=== PATIENT | male | born 1945 | race Caucasian/White ===

== ENCOUNTER 2017-09-30 22:48 | Inpatient (IN) | payer MEDICARE, MEDICAID ==
[~2017-09-30] VITALS: Ht 177.8 cm; Wt 115.2 kg
[2017-09-30 23:56] LABS: BASOPHILS # (AUTO) 0.1 K/uL (0.0-8.0); BASOPHILS % (AUTO) 0.9 % (0.0-2.0); EOSINOPHILS # (AUTO) 0.3 K/uL (0.0-0.7); EOSINOPHILS % (AUTO) 3.7 % (0.0-7.0); HEMOGLOBIN 11.8 g/dL (12.5-16.3); LYMPHOCYTES % (AUTO) 32.7 % (20.5-51.5); MEAN CORPUSCULAR HEMOGLOBIN 27.8 uug (23.8-33.4); MEAN CORPUSCULAR HGB CONC 35 g/dL (32.5-36.3); MEAN CORPUSCULAR VOLUME 80.1 fL (73.0-96.2); MONOCYTES # (AUTO) 0.5 K/uL (2.0-10.0); MONOCYTES % (AUTO) 5.2 % (0.0-11.0); NEUTROPHILS # (AUTO) 5.2 K/uL (1.8-8.9); NEUTROPHILS % (AUTO) 57.5 % (38.5-71.5); PLATELET COUNT (AUTO) 217 K/uL (152-348); RED BLOOD CELL COUNT(AUTO) 4.25 MIL/uL (4.06-5.63)
[2017-10-01 00:09] LABS: ALANINE AMINOTRANSFERASE 19 U/L (16-63); BILIRUBIN,DIRECT 0.1 mg/dL (0.0-0.2); BILIRUBIN,TOTAL 0.7 mg/dL (0.2-1.0); CARBON DIOXIDE 23 mmol/L (21-32); CHLORIDE 104 mmol/L (98-107); CREATININE 1.7 mg/dL (0.6-1.3); GLUCOSE 172 mg/dL (74-106); POTASSIUM 4.1 mmol/L (3.5-5.1); TOTAL PROTEIN, SERUM 6.7 g/dL (6.4-8.2)
[2017-10-01] MEDS ORDERED: AMLODIPINE PO (00:15)
[2017-10-01] MEDS ORDERED: [UNRECOGNIZED DRUG - OTHER] PO (00:15)
[2017-10-01] MEDS ORDERED: DOCU-141 PO (00:15)
[2017-10-01] MEDS ORDERED: BENZ200C53 PO (00:15)
[2017-10-01] MEDS ORDERED: PANT40TA4 PO (00:15)
[2017-10-01] MEDS ORDERED: LORA-258 PO (00:15)
[2017-10-01 00:30] LABS: ALKALINE PHOSPHATASE 68 U/L (50-136); UREA NITROGEN, BLOOD 30 mg/dL (7-18)
--- NOTE | 2017-10-01 01:07 | NUR ---
Call placed to [employer], Nallely Mcgovern will be paged.
[2017-10-01] MEDS ORDERED: ASPIRIN 325 MG TABLET ONE (01:09)
[2017-10-01 01:12] LABS: ASPARTATE AMINOTRANSFERASE 16 U/L (15-37)
[2017-10-01] MEDS ORDERED: ASPIRIN 325 MG TABLET PO ONE (01:15)
--- NOTE | 2017-10-01 01:59 | NUR ---
Received report from ER nurse Kody.
--- NOTE | 2017-10-01 01:59 | NUR ---
REPORT GIVEN TO TELE NURSE LISSETT RN
[2017-10-01] MEDS ORDERED: Z GUARD REMEDY PASTE 57 GM TUBE TOP PRN (02:00)
[2017-10-01] MEDS ORDERED: ONDANSETRON 4 MG/2 ML VIAL IV PRN (02:00)
[2017-10-01] MEDS ORDERED: ACETAMINOPHEN 325 MG TABLET PO PRN (02:00)
[2017-10-01] MEDS ORDERED: HYDROCODONE/APAP 5-325MG TABLET PO PRN (02:00)
[2017-10-01] MEDS ORDERED: ZOLPIDEM 5 MG TABLET PO PRN (02:00)
[2017-10-01] MEDS ORDERED: MAGNESIUM HYDROXIDE 30 ML LIQUID UDC PO PRN (02:00)
--- NOTE | 2017-10-01 02:20 | NUR ---
Admitted pt with Dx of TIA. Pt AAOx4. Routine admission care done. Plan of care initiated. IV site on Left AC intact and patent. Sinus rhythm with PVC on tele. Safety measure initiated and call teixeira within reach.
[2017-10-01 02:50] VITALS: BP 146/63
[2017-10-01] MEDS: LORAZEPAM 0.5 MG TABLET PO PRN ×2 (03:02→20:52)
[2017-10-01] MEDS ORDERED: BLOOD SUGAR DIAGNOSTIC 1 EACH STRIP VI SCH ×2 (06:00→07:30)
[2017-10-01] MEDS: PANTOPRAZOLE SODIUM 40 MG TABLET.DR PO SCH (06:02)
--- NOTE | 2017-10-01 06:31 | NUR ---
Pt AOx4. Denies any pain or SOB. Not in acute distress. Mild pitting edema on both leg still present. Elevated BLE with pillow. IV site on left AC intact and patent. O2 at 93% on RA. Sinus rhythm with PVC on tele, 68/min. Safety measure maintained and call teixeira within reach.
[2017-10-01 06:41] LABS: BASOPHILS # (AUTO) 0.1 K/uL (0.0-8.0); EOSINOPHILS # (AUTO) 0.3 K/uL (0.0-0.7); EOSINOPHILS % (AUTO) 4.1 % (0.0-7.0); HEMATOCRIT 34.8 % (36.7-47.1); HEMOGLOBIN 11.7 g/dL (12.5-16.3); LYMPHOCYTES # (AUTO) 2.7 K/uL (20.0-40.0); LYMPHOCYTES % (AUTO) 36.6 % (20.5-51.5); MEAN CORPUSCULAR HEMOGLOBIN 26.8 uug (23.8-33.4); MEAN CORPUSCULAR HGB CONC 34 g/dL (32.5-36.3); MEAN CORPUSCULAR VOLUME 79.8 fL (73.0-96.2); MONOCYTES # (AUTO) 0.4 K/uL (2.0-10.0); MONOCYTES % (AUTO) 5.7 % (0.0-11.0); NEUTROPHILS # (AUTO) 3.9 K/uL (1.8-8.9); NEUTROPHILS % (AUTO) 52.6 % (38.5-71.5); PLATELET COUNT (AUTO) 194 K/uL (152-348); RED BLOOD CELL COUNT(AUTO) 4.36 MIL/uL (4.06-5.63); WHITE BLOOD COUNT (AUTO) 7.4 K/uL (3.6-10.2)
[2017-10-01 06:47] VITALS: BP 124/68
--- NOTE | 2017-10-01 07:00 | NUR ---
RECEIVED PATIENT ON BED AWAKE, A AND O X4, ON TELE SR PVC, NO ACUTE DISTRESS NOTED. C/O SOME NUMBNESS ON THE FINGERS OF THE LEFT HAND, BUT WITH STRONG RAILWAY PATROL OFFICER NOTED. IV ACCESS ON THE LEFT AC #18, INTACT AND PATENT. NO COMPLAINTS OF PAIN/DISCOMFORT AT THIS TIME. CALL LIGHT WITHIN REACH WILL CONTINUE TO MONITOR CLOSELY.
[2017-10-01 07:29] LABS: CARBON DIOXIDE 27 mmol/L (21-32); CHLORIDE 107 mmol/L (98-107); CREATININE 1.7 mg/dL (0.6-1.3); GLUCOSE 127 mg/dL (74-106); POTASSIUM 4.2 mmol/L (3.5-5.1); UREA NITROGEN, BLOOD 28 mg/dL (7-18)
[2017-10-01 07:48] LABS: ALANINE AMINOTRANSFERASE 16 U/L (16-63); ALKALINE PHOSPHATASE 66 U/L (50-136); ASPARTATE AMINOTRANSFERASE 12 U/L (15-37); BILIRUBIN,TOTAL 0.7 mg/dL (0.2-1.0); TOTAL PROTEIN, SERUM 6.8 g/dL (6.4-8.2)
[2017-10-01] MEDS: ASPIRIN 81 MG TAB.CHEW PO SCH (08:05)
[2017-10-01] MEDS: DOCUSATE SODIUM 100 MG CAPSULE PO SCH ×2 (08:05→18:14)
[2017-10-01] MEDS ORDERED: ENOXAPARIN SODIUM 60 MG/0.6 ML DISP.SYRIN SQ SCH ×2 (09:00→21:00)
[2017-10-01 09:01] LABS: *BILIRUBIN,URIN NEGATIVE (NEGATIVE); *BLOOD, URINE NEGATIVE (NEGATIVE); *CLARITY,URINE CLEAR (CLEAR); *COLOR,URINE YELLOW (YELLOW); *KETONES,URINE NEGATIVE (NEGATIVE); *PROTEIN,URINE NEGATIVE (NEGATIVE); *UROBILINOGEN,URINE 0.2 E.U./dl (NORMAL); LEUKOCYTE ESTERASE ,URINE NEGATIVE (NEGATIVE); NITRITE, URINE NEGATIVE (NEGATIVE); PH,URINE 5.5 (5.0-8.0); UGLUCOSE NEGATIVE (NEGATIVE)
[2017-10-01 09:10] LABS: BACTERIA,URINE NONE SEEN /HPF (NONE SEEN); RBC,URINE NONE SEEN /HPF (0-3); SQUAMOUS EPITHELIAL CELL,UR FEW /HPF (NONE SEEN); WBC,URINE 0-3 /HPF (0-3)
[2017-10-01] MEDS ORDERED: DEXTROSE 50% 50 ML DISP.SYRIN IV PRN (10:30)
[2017-10-01 11:34] VITALS: BP 135/57
[2017-10-01 12:18] LABS: CARBON DIOXIDE 24 mmol/L (21-32); CHLORIDE 106 mmol/L (98-107); CHOLESTEROL 191 mg/dL (<200); CREATININE 1.7 mg/dL (0.6-1.3); GLUCOSE 123 mg/dL (74-106); HDL CHOLESTEROL 27 mg/dL (40-60); MAGNESIUM 2.1 mg/dL (1.8-2.4); PHOSPHOROUS 4.1 mg/dL (2.5-4.9); POTASSIUM 4.3 mmol/L (3.5-5.1); TRIGLYCERIDES 171 MG/DL (30-150); UREA NITROGEN, BLOOD 28 mg/dL (7-18)
--- NOTE | 2017-10-01 12:30 | NUR ---
REFUSED INSULIN COVERAGE WITH BLOOD SUGAR OF 164, EXPALINED RISKS, PATIENT VERBALIZED UNDERSTANDING. WILL CONTINUE TO MONITOR CLOSELY.
[2017-10-01] MEDS: BLOOD SUGAR DIAGNOSTIC 1 EACH STRIP VI SCH ×3 (12:47→20:55)
[2017-10-01] MEDS: INSULIN REGULAR, HUMAN 300 UNIT/3 ML VIAL SQ PRN (12:47)
[2017-10-01] MEDS ORDERED: IV NS 1000 ML 1,000 ML IV PRN (15:00)
--- NOTE | 2017-10-01 15:27 | NUR ---
patient complained of gas, informed john banking manager, with orders for mylanta 30ml q6hr prn. orders noted and carried out. will cont. to monitor closely.
[2017-10-01] MEDS ORDERED: MAG HYDROX/AL HYDROX/SIMETH 30 ML LIQUID UDC PO PRN (15:30)
[2017-10-01 16:05] VITALS: BP 130/60
[2017-10-01] MEDS ORDERED: AMLODIPINE PO SCH (17:00)
[2017-10-01] MEDS ORDERED: OLMESARTAN PO SCH (17:00)
--- NOTE | 2017-10-01 19:10 | NUR ---
TEXTED DR. MACKAY FOR MRI C SPINE APPROVAL.
--- NOTE | 2017-10-01 19:12 | NUR ---
MRI APPROVED,IT WILL BE DONE TOMORROW ,I WILL CALLTOMORROW AM.
[2017-10-01 20:30] VITALS: BP 137/64
[2017-10-01] MEDS: ATORVASTATIN 20 MG TABLET PO SCH (20:45)
[2017-10-01] MEDS: LOSARTAN POTASSIUM 50 MG TABLET PO SCH (20:47)
[2017-10-01] MEDS: AMLODIPINE 5 MG TABLET PO SCH (20:48)
[2017-10-01] MEDS ORDERED: ENOXAPARIN SODIUM 40 MG/0.4 ML DISP.SYRIN SQ SCH (21:00)
[2017-10-02 00:26] VITALS: BP 138/55
[2017-10-02 04:00] VITALS: BP 127/67
[2017-10-02] MEDS: BLOOD SUGAR DIAGNOSTIC 1 EACH STRIP VI SCH ×4 (05:48→21:06)
[2017-10-02] MEDS: PANTOPRAZOLE SODIUM 40 MG TABLET.DR PO SCH (05:50)
--- NOTE | 2017-10-02 07:00 | NUR ---
RECEIVED PATIENT ON BED AWAKE, A AND O X4, ON TELE SR PVC, NO ACUTE DISTRESS NOTED. INDEPENDENT WITH ADLS, AMBULATORY. NO COMPLAINTS OF NUMBNESS OR TINGLING IN THE LEFT HAND, STRONG TRAVEL COUNSELOR NOTED. IV ACCESS ON THE LEFT HAND #22, INTACT AND PATENT. NO COMPLAINTS OF PAIN/DISCOMFORT AT THIS TIME. CALL LIGHT WITHIN REACH WILL CONTINUE TO MONITOR CLOSELY
[2017-10-02 07:01] LABS: CARBON DIOXIDE 28 mmol/L (21-32); CHLORIDE 103 mmol/L (98-107); CREATININE 1.5 mg/dL (0.6-1.3); GLUCOSE 129 mg/dL (74-106); UREA NITROGEN, BLOOD 21 mg/dL (7-18)
[2017-10-02 07:06] LABS: MAGNESIUM 2.1 mg/dL (1.8-2.4); PHOSPHOROUS 3.4 mg/dL (2.5-4.9)
[2017-10-02 07:08] LABS: BASOPHILS # (AUTO) 0.1 K/uL (0.0-8.0); BASOPHILS % (AUTO) 0.8 % (0.0-2.0); EOSINOPHILS # (AUTO) 0.3 K/uL (0.0-0.7); EOSINOPHILS % (AUTO) 3.6 % (0.0-7.0); HEMOGLOBIN 12.1 g/dL (12.5-16.3); LYMPHOCYTES # (AUTO) 2.3 K/uL (20.0-40.0); LYMPHOCYTES % (AUTO) 29.5 % (20.5-51.5); MEAN CORPUSCULAR HGB CONC 34 g/dL (32.5-36.3); MEAN CORPUSCULAR VOLUME 80.5 fL (73.0-96.2); MONOCYTES # (AUTO) 0.5 K/uL (2.0-10.0); MONOCYTES % (AUTO) 5.9 % (0.0-11.0); NEUTROPHILS # (AUTO) 4.8 K/uL (1.8-8.9); NEUTROPHILS % (AUTO) 60.2 % (38.5-71.5); PLATELET COUNT (AUTO) 195 K/uL (152-348); RED BLOOD CELL COUNT(AUTO) 4.47 MIL/uL (4.06-5.63)
--- NOTE | 2017-10-02 08:00 | NUR ---
Refuses IVF ns @ 60cc/hr, patient says that he doesn't wantt it because he gets up and walks frequently. will continue to monitor.
[2017-10-02] MEDS: ENOXAPARIN SODIUM 40 MG/0.4 ML DISP.SYRIN SQ SCH (09:14)
[2017-10-02] MEDS: DOCUSATE SODIUM 100 MG CAPSULE PO SCH ×2 (09:15→17:10)
[2017-10-02] MEDS: AMLODIPINE 5 MG TABLET PO SCH ×2 (09:15→20:59)
[2017-10-02] MEDS: LOSARTAN POTASSIUM 50 MG TABLET PO SCH ×2 (09:15→20:59)
[2017-10-02] MEDS: ASPIRIN 81 MG TAB.CHEW PO SCH (09:15)
[2017-10-02 11:09] VITALS: BP 126/69
--- NOTE | 2017-10-02 12:15 | NUR ---
LEFT FOR MRI CSPINE WO CONTRAST AT [place] IN STABLE CONDITION, VITAL SIGNS WNL. ACCOMPANIED BY 2 EMT VIA AMBULANCE. TABLE TIME IS AT 1300.
--- NOTE | 2017-10-02 14:30 | NUR ---
GOT BACK FROM [facility] S/P MRI, IN STABLE CONDITION, ACCOMPANIED BY EMT, VITALS WNL, SETTLED IN ROOM. 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 WILL CONTINUE TO MONITOR,
--- NOTE | 2017-10-02 15:00 | NUR ---
continues to refuse IV fluids, patient in stable condition will continue to monitor.
[2017-10-02 15:08] VITALS: BP 106/68
--- NOTE | 2017-10-02 18:25 | NUR ---
PATIENT IN ROOM, AT BEDSIDE. NO ACUTE DISTRESS NOTED. WALKS AROUND HALLWAYS, CONTINUES TO REFUSE IVF. LAST BLOOD SUGAR AC DINNER 106. NO COMPLAINTS OF NUMBNESS AND TINGLING IN FINGERS. NIHSS 0, NO C/O PAIN OR DISCOMFORT. NEEDS ATTENDED AND ANTICIPATED. WILL ENDORSE ACCORDINGLY.
--- NOTE | 2017-10-02 19:10 | NUR ---
Received patient in room ready to go out and assist family on their way out. Denies any pain/discomforts. Denies any numbness on left fingers, left face and no slurred speech. Ambulated with steady gait. Continue care as planned.
--- NOTE | 2017-10-02 19:25 | NUR ---
Patient refused IVF and SCD pump. Charge nurse aware.
[2017-10-02 20:00] VITALS: BP 115/54
[2017-10-02] MEDS: ATORVASTATIN 20 MG TABLET PO SCH (20:58)
[2017-10-02] MEDS: INSULIN REGULAR, HUMAN 300 UNIT/3 ML VIAL SQ PRN (21:04)
[2017-10-02] MEDS: LORAZEPAM 0.5 MG TABLET PO PRN (21:14)
[2017-10-03] VITALS: BP 137/53
--- NOTE | 2017-10-03 01:00 | NUR ---
Patient said he can not sleep, asking permission to walk around in the hallways. Ambulating with steady gait, No SOB/SOBOE.
[2017-10-03 04:00] VITALS: BP 104/55
--- NOTE | 2017-10-03 04:57 | NUR ---
Very diaphoretic, changed gown and blood sugar checked for suspicion of hypoglycemia. Bs 108 mg/dl. Denies s/s of hypoglycemia.
--- NOTE | 2017-10-03 05:28 | NUR ---
Slept at short interval. No complaint presented all night except being diaphoretic x2 which he claimed its normal for him. Denies any pain/s/s of hypo/hyperglycemia. All needs attended and met. Remain SR with PVC's.s on the monitor. Continue care as planned.
[2017-10-03] MEDS: PANTOPRAZOLE SODIUM 40 MG TABLET.DR PO SCH (06:08)
[2017-10-03] MEDS: BLOOD SUGAR DIAGNOSTIC 1 EACH STRIP VI SCH ×2 (06:30→11:50)
[2017-10-03 06:45] LABS: BASOPHILS # (AUTO) 0.1 K/uL (0.0-8.0); BASOPHILS % (AUTO) 0.8 % (0.0-2.0); EOSINOPHILS # (AUTO) 0.3 K/uL (0.0-0.7); EOSINOPHILS % (AUTO) 3.9 % (0.0-7.0); HEMATOCRIT 36.3 % (36.7-47.1); HEMOGLOBIN 12.1 g/dL (12.5-16.3); LYMPHOCYTES # (AUTO) 2.6 K/uL (20.0-40.0); LYMPHOCYTES % (AUTO) 33.3 % (20.5-51.5); MEAN CORPUSCULAR HEMOGLOBIN 26.7 uug (23.8-33.4); MEAN CORPUSCULAR HGB CONC 33 g/dL (32.5-36.3); MONOCYTES # (AUTO) 0.5 K/uL (2.0-10.0); MONOCYTES % (AUTO) 6.2 % (0.0-11.0); NEUTROPHILS # (AUTO) 4.4 K/uL (1.8-8.9); NEUTROPHILS % (AUTO) 55.8 % (38.5-71.5); PLATELET COUNT (AUTO) 196 K/uL (152-348); RED BLOOD CELL COUNT(AUTO) 4.53 MIL/uL (4.06-5.63); WHITE BLOOD COUNT (AUTO) 7.8 K/uL (3.6-10.2)
[2017-10-03 06:57] LABS: ALANINE AMINOTRANSFERASE 19 U/L (16-63); ALKALINE PHOSPHATASE 72 U/L (50-136); ASPARTATE AMINOTRANSFERASE 12 U/L (15-37); BILIRUBIN,TOTAL 1.1 mg/dL (0.2-1.0); CARBON DIOXIDE 27 mmol/L (21-32); CHLORIDE 105 mmol/L (98-107); CREATININE 1.5 mg/dL (0.6-1.3); GLUCOSE 118 mg/dL (74-106); MAGNESIUM 2.3 mg/dL (1.8-2.4); PHOSPHOROUS 4.1 mg/dL (2.5-4.9); POTASSIUM 3.9 mmol/L (3.5-5.1); TOTAL PROTEIN, SERUM 7.2 g/dL (6.4-8.2); UREA NITROGEN, BLOOD 22 mg/dL (7-18)
--- NOTE | 2017-10-03 08:00 | NUR ---
AWAKE ALERT COOPERATE WELL NO SOB OR PAIN RESTING WITH CALL LIGHT IN REACH
[2017-10-03] MEDS ORDERED: ASPIRIN 325 MG TABLET PO SCH (09:00)
[2017-10-03] MEDS: LOSARTAN POTASSIUM 50 MG TABLET PO SCH (09:06)
[2017-10-03] MEDS: AMLODIPINE 5 MG TABLET PO SCH (09:07)
[2017-10-03] MEDS: DOCUSATE SODIUM 100 MG CAPSULE PO SCH (09:07)
[2017-10-03] MEDS: ENOXAPARIN SODIUM 40 MG/0.4 ML DISP.SYRIN SQ SCH (09:09)
[2017-10-03 11:12] VITALS: BP 128/53
[2017-10-03] MEDS: INSULIN REGULAR, HUMAN 300 UNIT/3 ML VIAL SQ PRN (12:06)
--- NOTE | 2017-10-03 12:30 | NUR ---
EAT WELL NO SOB OR PAIN FAMILY AT BEDSIDE
--- NOTE | 2017-10-03 13:30 | NUR ---
BECKI SIEGEL SEE PATIENT AND LAB RESULT AND ORDER OK TO D/C HOME TODAY D/C INSTRUCTION REGARDING F/U WITH OWN PMD AND DR FAIRCHILD AND CONTINUE HOME MEDICINE PRECRIPTION/ORDER EDUCATION PK GIVEN ,VERBALIZES UNDERSTAND AND SIGNS D/C SHEET
[2017-10-03] MEDS ORDERED: ATOR20TA PO (13:42)
[2017-10-03] MEDS ORDERED: ASPI1CPM PO (13:42)
--- NOTE | 2017-10-03 14:30 | NUR ---
HL WAS DISCONTINUE PRIOR D/C HOME AND [facility] WAS INSTRUCTION ON HOME MEDICINE AND DR JEAN ,VERBALIZES UNDERSTAND
[2017-10-03 14:58] VITALS: BP 134/61
--- NOTE | 2017-10-03 16:00 | NUR ---
D/C HOME WITH HIS BELONGING CONDITION STABLE NO SOB ,NUMNESS OR PAIN ACCOMPANY WITH AND SON
[2017-10-03] MEDS ORDERED: ASPIRIN/DIPYRIDAMOLE 25/200 MG CAPSULE PO SCH (21:00)
== END 2017-10-03 16:00 | disposition home or self-care (01) | DRG 64 ==
LOC: ER 22:50 → TELE 10-01 01:45
PROVIDERS: ADMIT Nurse Practitioner Acute Care; ATTEND Nurse Practitioner Acute Care
DX: I63.9 Cerebral infarction, unspecified (principal); N17.0 Acute kidney failure with tubular necrosis; R17 Unspecified jaundice; E11.65 Type 2 diabetes mellitus with hyperglycemia; M48.02 Spinal stenosis, cervical region; D64.9 Anemia, unspecified; E78.5 Hyperlipidemia, unspecified; I49.3 Ventricular premature depolarization; M19.012 Primary osteoarthritis, left shoulder; M50.122 Cervical disc disorder at C5-C6 level with radiculopathy; R29.701 NIHSS score 1; R47.81 Slurred speech; R29.810 Facial weakness; Z90.79 Acquired absence of other genital organ(s); Z85.46 Personal history of malignant neoplasm of prostate; Z87.19 Personal history of other diseases of the digestive system; J34.1 Cyst and mucocele of nose and nasal sinus; I25.2 Old myocardial infarction; E02 Subclinical iodine-deficiency hypothyroidism; G47.9 Sleep disorder, unspecified; I11.9 Hypertensive heart disease without heart failure; M46.04 Spinal enthesopathy, thoracic region; Z79.82 Long term (current) use of aspirin
CPT/HCPCS: 36415; 70030-TC; 70450; 70551; 71045; 72125; 72141; 83735; 84100; 84443; 84481; 85025; 85651; 85730; 93005; 93307; 93880; A4663; J1650; J1815; J7030